=== PATIENT | male | born 1955 | race Two or more races ===

== ENCOUNTER 2022-05-30 05:23 | Day surgery (SDC) | payer OTHER | END 2022-05-30 09:10 | disposition home or self-care (01) | LOC: AMB-ENDOS 05:23 | PROVIDERS: ATTEND Surgery | DX: D12.7 Benign neoplasm of rectosigmoid junction (principal); K57.31 Diverticulosis of large intestine without perforation or abscess with bleeding; I10 Essential (primary) hypertension; E78.5 Hyperlipidemia, unspecified; Z20.822 Contact with and (suspected) exposure to COVID-19 ==